=== PATIENT | female | born 1950 | race Caucasian/White ===

== ENCOUNTER 2017-12-07 13:08 | Observation (INO) ==
[2017-12-07] MEDS ORDERED: NS 1,000 ML IV ONE (13:19)
[2017-12-07] MEDS ORDERED: SALINE FLUSH 10ml SYRINGE IVF PRN ×2 (13:19→17:48)
[2017-12-07] MEDS ORDERED: CEFEPIME 1 GM in NS 100 ML IV ONE (13:19)
--- NOTE | 2017-12-07 14:04 | Emergency Department Report ---
Fever HPI - General Chief Complaint: Fever Stated Complaint: temp w/chills, chemo treatements Time Seen by Provider: 12/07/17 13:16 Source: patient, RN notes reviewed, old records reviewed, other (Oncologist) Mode of arrival: ambulatory Limitations: no limitations - History of Present Illness HPI Narrative: 67yo woman presents to the ER for evaluation of a fever. Pt has metastatic melanoma - is on a combo biologic agent that can cause fevers and neutropenia. Pt's oncologist recommended that pt come to the ER for evaluation for possible neutropenic fever. MD complaint: fever Onset (ago): hour(s) Maximum Temperature: 101.4 F Temperature Source: oral Context: on chemotherapy Associated symptoms: denies other symptoms Relieving factors: acetaminophen Exacerbating factors: nothing Treatments prior to arrival fever: acetaminophen - Related Data Home Medications Medication Instructions Recorded Confirmed Zyrtec (Cetirizine) 10 mg tablet 10 mg PO DAILY tab 03/18/17 12/07/17 biotin 1,000 mcg chewable tablet 1,000 mcg PO DAILY tab 03/18/17 12/07/17 cholecalciferol (vitamin D3) 2,000 2,000 unit PO DAILY cap 03/18/17 12/07/17 unit capsule lactobacillus combination no.8 3 1 cap PO DAILY cap 03/18/17 12/07/17 billion cell capsule [place]-3/Dha/Epa/Fish Oil [Fish Oil 2 each PO DAILY 10/06/17 12/07/17 1,000 mg Softgel] Magnesium Oxide [Magnesium] 1 tab PO BID 10/20/17 12/07/17 Aspirin [Adult Aspirin Regimen] 81 mg PO DAILY 12/07/17 12/07/17 Dabrafenib Mesylate [Tafinlar] 150 mg PO BID 12/07/17 12/07/17 Iron Ps Cmplx/Vit B12/FA 1 each PO DAILY 12/07/17 12/07/17 [Poly-Iron 150 Forte Capsule] Ondansetron HCl [Zofran] 4 mg PO PRN PRN 12/07/17 12/07/17 Sucralfate [Carafate] 1 gm PO QID 12/07/17 12/07/17 Trametinib Dimethyl Sulfoxide 2 mg PO DAILY 12/07/17 12/07/17 [Mekinist] Previous Rx's Medication Instructions Recorded famotidine 20 mg tablet 20 mg PO DAILY #90 tab 04/27/17 lisinopril 20 mg tablet 20 mg PO BID #180 tab 04/27/17 Zoloft (sertraline) 100 mg tablet 100 mg PO DAILY #90 tab 07/14/17 Glucophage (metformin) 500 mg 500 mg PO BID #180 tab 07/29/17 tablet Neurontin (gabapentin) 300 mg 600 mg PO TID #540 cap 10/24/17 capsule [place] 10 mg-acetaminophen 325 mg 0.5 tab PO QID PRN #60 tab 12/02/17 tablet Allergies Allergy/AdvReac Type Severity Reaction Status Date / Time benazepril [From Lotensin] Allergy Intermediate Cough Verified 12/07/17 14:01 peach Allergy Intermediate HIVES Verified 12/07/17 14:01 [place] Allergy Intermediate HIVES Verified 12/07/17 14:01 Iodinated Contrast- Oral and Allergy Unknown rash Verified 12/07/17 14:01 IV Dye Ljskwsz-Coc-Hnb Reductase AdvReac Intermediate myalgias Verified 12/07/17 14:01 Inhibitor aspartame AdvReac Mild {NUTRASWEET(R)} Verified 12/07/17 14:01 FACIAL NERVE PROBLEMS Review of Systems All systems: reviewed and negative except as stated Constitutional: Reports: as per HPI, fever, weakness. Denies: chills, weight change, night sweats PFSH Patient Stated Medical History Sleep Apnea No Diabetes Mellitus Type 2 Yes: PREDIABETIC/HIGH BGM'SPER PATIENT-PT DENIES DIABETES Clinic Medical History (Last Updated 10/11/17 @ 13:56 by Lesia Tracey, JAGUAR) Seasonal allergies (Chronic Medical) Lymphadenopathy (Chronic Medical) R axilla Melanoma (Chronic Medical) Probably metastatic-with lymph node involvement R axilla. H x of excision of superficial melanoma R upper back in 2010. Chronic low back pain (Chronic Medical) Mixed hyperlipidemia (Chronic Medical) Obesity (Chronic Medical) Hx of melanoma of skin (Chronic Medical) Right upper back (2010) Osteoarthritis (Chronic Medical) Neuropathy (Chronic Medical) Left leg Hx of septic arthritis (Resolved Medical) Left knee Allergic rhinitis (Chronic Medical) Spondylolisthesis (Chronic Medical) L5-S1 MVP (mitral valve prolapse) (Chronic Medical) HTN (hypertension) (Chronic Medical) Anxiety (Acute Medical) Depression (Acute Medical) Surgical History: hysterectomy 1991. bilateral bunionectomy 1980. spinal fusion 2001 with corrections 2005 and 2006. left knee replacement 2009 Family History: Family History (Last Reviewed 10/11/17 @ 13:37 by LISA Bonilla) Father , at age 52 Heart attack Alcoholism Mother , at age 71 Polio Paralytic ileus Sister Post-polio syndrome - Social History Smoking status: Never smoker Alcohol intake frequency: does not drink Housing: house Household members: spouse, other Current occupational status: retired Physical Exam - Limitations Limitations: no limitations - General General appearance: alert, in no apparent distress, obese - Normal Exams: Head:: Normocephalic without trauma Eyes:: Pupils are PERRLA w/ EOMI, No scleral icterus, irritation, or foreign bodies noted ENMT:: No facial trauma, nasal exudates, pharyngeal erythema, or exudates are noted Neck:: Full range of motion, without adenopathy Lymphatic:: No lymphadenopathy Musculoskeletal:: No tenderness, or deformity noted Integumentary:: No rashes, hives, or bruising noted Neurological:: Patient is alert, and oriented Psychiatric:: Patient exhibits, appropriate attention - Chest Chest inspection: Present: normal inspection, symmetric chest wall rise. Absent : tenderness, rash - Respiratory Respiratory exam: Present: normal lung sounds bilaterally. Absent: respiratory distress, wheezes, stridor, prolonged expiratory phase, crackles - Cardiovascular Cardiovascular exam: Present: regular rate, normal rhythm, normal heart sounds. Absent: rubs, gallop, clicks - Abdominal Exam Abdominal exam: Present: soft, normal bowel sounds. Absent: distention, tenderness, guarding, rebound, rigidity Course - Consultations Consultation #1: Dr. Croft: Would recommend contacting hospitalist regarding obs to eval for improvement and await culx results. Would recommend using levaquin or continuing cefepime. Time: 15:20 Consultation #2: Hospitalist: Can admit for overnight observation and reassess in the AM. Time: 15:26 Vital Signs Temperature 100.3 F 12/07/17 13:08 Pulse Rate 115 H 12/07/17 13:08 Respiratory Rate 24 12/07/17 13:08 Blood Pressure 129/68 12/07/17 13:08 Pulse Oximetry 97 12/07/17 13:08 Temperature 100.3 F 12/07/17 13:08 Pulse Rate 115 H 12/07/17 13:08 Respiratory Rate 24 12/07/17 13:08 Blood Pressure 129/68 12/07/17 13:08 Pulse Oximetry 97 12/07/17 13:08 Fever - MDM Narrative Medical decision making narrative: Pt with low WBC's, but no sepsis markers and not neutropenic. After discussion with oncologist, contacted hospitalist for observation. Hospitalist will admit for overnight observation; will reassess tomorrow and determine whether to admit pt or d/c to home with f/u. - Differential Diagnosis Likely: cellulitis, fever of unknown origin, gastroenteritis, community acquired pneumonia, pyelonephritis, viral infection, sepsis - Medical Records Attestation: I reviewed the patient's medical records. - Lab Data Attestation: I reviewed the patient's lab results. Result diagrams: 12/07/17 13:41 12/07/17 13:42 - Radiology Data Attestation: I reviewed the patient's radiology results. CXR: IMPRESSION: No acute cardiopulmonary abnormality. Disposition Clinical Impression: Fever Qualifiers: Fever type: unspecified Qualified Code(s): R50.9 - Fever, unspecified Disposition: 02 To OBS [facility] Print Language: German Condition: Stable Prescriptions: No Action Iron Ps Cmplx/Vit B12/FA [Poly-Iron 150 Forte Capsule] 1 each PO DAILY Dabrafenib Mesylate [Tafinlar] 150 mg PO BID Ondansetron HCl [Zofran] 4 mg PO PRN PRN PRN Reason: Nausea [place]-3/Dha/Epa/Fish Oil [Fish Oil 1,000 mg Softgel] 2 each PO DAILY Magnesium Oxide [Magnesium] 1 tab PO BID Trametinib Dimethyl Sulfoxide [Mekinist] 2 mg PO DAILY Aspirin [Adult Aspirin Regimen] 81 mg PO DAILY Sucralfate [Carafate] 1 gm PO QID biotin 1,000 mcg chewable tablet 1,000 mcg PO DAILY tab Zyrtec (Cetirizine) 10 mg tablet 10 mg PO DAILY tab cholecalciferol (vitamin D3) 2,000 unit capsule 2,000 unit PO DAILY cap lactobacillus combination no.8 3 billion cell capsule 1 cap PO DAILY cap famotidine 20 mg tablet 20 mg PO DAILY #90 tab lisinopril 20 mg tablet 20 mg PO BID #180 tab Glucophage (metformin) 500 mg tablet 500 mg PO BID #180 tab Neurontin (gabapentin) 300 mg capsule 600 mg PO TID #540 cap Zoloft (sertraline) 100 mg tablet 100 mg PO DAILY #90 tab [place] 10 mg-acetaminophen 325 mg tablet 0.5 tab PO QID PRN #60 tab PRN Reason: pain Referrals: Rangel Platt MD [Primary Care Provider] - Time of Disposition: 16:04 - Seen By: physician
--- NOTE | 2017-12-07 14:20 | XRay Report ---
Indication: F/C PROCEDURE: XR chest 1V: Encounter: Initial Comparison: November 09, 2008 FINDINGS: The lungs are clear. There is no abnormal airspace opacity, pleural effusion or pneumothorax identified. The heart size, pulmonary vasculature and mediastinum are within normal limits. No significant skeletal abnormality is seen. IMPRESSION: No acute cardiopulmonary abnormality. .
[2017-12-07 17:23] VITALS: BMI 30.7
--- NOTE | 2017-12-07 17:30 | History & Physical Report ---
History of Present Illness Date: 12/07/17 Chief complaint: Fever HPI: Mrs. Fleming is a 67 year old with a history of metastatic melanoma, diagnosed in August,. Previously, she had a melanoma removed from her right shoulder in 2010 with clear margins. She sees Dr. Croft for treatment. She was started on Mekonist and Tafinlar about 1 week ago. She states that she started having chills on 12/04/17. She also had mild nausea and vomited rather abruptly once in the morning of 12/05/17 and again on 12/06/17. She also reports that she has chronic sinus problems and seasonal allergies; she had a brief mild left-sided nasal obstruction a couple days ago, but that's fairly typical for her. She's noticed that her strength overall has been slightly reduced. While she has chronic back pain, she had a different back ache that went up and down her back , on either side of her spine. She denies cough. She denies any abdominal pain, diarrhea, or constipation. She denies dysuria or urinary frequency/urgency. She has not had chest pain or dyspnea. She denies headaches, visual changes, paresthesias. She works out in the yard daily and other than a scratch to her left leg from a fence, she denies any insect bites or contact dermatitis exposures. She rechecked her temperature twice on 12/05/17, both times normal, 98.3 & 98.4. When she reviewed the side effect of her biologic agents, fever was one, but it usually resolved after 3 days. She continued having chills, and when she rechecked her temp on 12/06/17 her thermometer battery (raising the question of accuracy the day before). She purchased a new thermometer on , and her temp was 101.2. She presented to [facility] for evaluation, where she had a fever of 102.6, tachycardia [115], and tachypnea [24]. WBC was low at 2.8, hgb low at 10.9, and platelets were low normal at 148 (earlier this month she was in the 300s). Na was minimally low at 135. UA and CXR were nonrevealing. She was bolused 1L IVF and was started on cefepime. Dr. Croft recommended hospital admission and coverage with cefepime, and the patient was subsequently admitted under the hospitalist service. Review of Systems All systems PM: 10-point ROS was reviewed, no additional remarkable complaints except (as per HPI) - Cardiovascular Cardiovascular: Absent: palpitations (used to have palpitations years ago) Past Medical History Medical History: Medical History (Last Updated 12/07/17 @ 17:49 by Lyn Ling, JAGUAR) Lymphadenopathy (Chronic) R axilla Melanoma (Chronic) Probably metastatic-with lymph node involvement R axilla. H x of excision of superficial melanoma R upper back in 2010. Chronic low back pain (Chronic) Mixed hyperlipidemia (Chronic) Obesity (Chronic) Hx of melanoma of skin (Chronic) Right upper back (2011) Osteoarthritis (Chronic) Neuropathy (Chronic) Left leg Hx of septic arthritis (Resolved) Onset Date: ~2008 Strep infection, Left knee Allergic rhinitis (Chronic) Spondylolisthesis (Chronic) L5-S1 MVP (mitral valve prolapse) (Chronic) HTN (hypertension) (Chronic) Anxiety Depression Medical History Updates: Prediabetes Surgical History: right axillary dissection 10/21/17 Dr. Saenz. hysterectomy 1991. bilateral bunionectomy 1980. spinal fusion 2001 with corrections 2005 and 2006. left knee replacement 2009 Family History: Family History (Last Reviewed 10/11/17 @ 13:37 by Brooke Miramontes [facility]) Father , at age 52 Heart attack Alcoholism Mother , at age 71 Polio Paralytic ileus Sister Post-polio syndrome Family History Updates: Father also smoked. Mother had cervical-level paralysis , thought to be polio related, and was placed on a vent at age 29, days after her 2nd daughter was born. Sister is 4 years younger than Roberta and has post-polio syndrome. She lives in [facility]. Family History: As Above - Social History Smoking status: Never smoker Substance use type: does not use Alcohol intake frequency: does not drink Household members: spouse Current occupational status: retired Previous occupational history: Nurse at [employer] Social history: PCP - Dr. Platt Medications Home Medications Medication Instructions Recorded Confirmed Type Zyrtec (Cetirizine) 10 mg tablet 10 mg PO DAILY tab 03/18/17 12/07/17 History biotin 1,000 mcg chewable tablet 1,000 mcg PO DAILY tab 03/18/17 12/07/17 History cholecalciferol (vitamin D3) 2,000 2,000 unit PO DAILY cap 03/18/17 12/07/17 History unit capsule lactobacillus combination no.8 3 1 cap PO DAILY cap 03/18/17 12/07/17 History billion cell capsule famotidine 20 mg tablet 20 mg PO DAILY #90 tab 04/27/17 12/07/17 Rx lisinopril 20 mg tablet 20 mg PO BID #180 tab 04/27/17 12/07/17 Rx Zoloft (sertraline) 100 mg tablet 100 mg PO DAILY #90 tab 07/14/17 12/07/17 Rx Glucophage (metformin) 500 mg 500 mg PO BID #180 tab 07/29/17 12/07/17 Rx tablet [place]-3/Dha/Epa/Fish Oil [Fish Oil 2 each PO DAILY 10/06/17 12/07/17 History 1,000 mg Softgel] Magnesium Oxide [Magnesium] 1 tab PO BID 10/20/17 12/07/17 History Neurontin (gabapentin) 300 mg 600 mg PO TID #540 cap 10/24/17 12/07/17 Rx capsule [place] 10 mg-acetaminophen 325 mg 0.5 tab PO QID PRN #60 tab 12/02/17 12/07/17 Rx tablet Aspirin [Adult Aspirin Regimen] 81 mg PO DAILY 12/07/17 12/07/17 History Dabrafenib Mesylate [Tafinlar] 150 mg PO BID 12/07/17 12/07/17 History Iron Ps Cmplx/Vit B12/FA 1 each PO DAILY 12/07/17 12/07/17 History [Poly-Iron 150 Forte Capsule] Ondansetron HCl [Zofran] 4 mg PO PRN PRN 12/07/17 12/07/17 History Sucralfate [Carafate] 1 gm PO QID 12/07/17 12/07/17 History Trametinib Dimethyl Sulfoxide 2 mg PO DAILY 12/07/17 12/07/17 History [Mekinist] Allergies Allergy/AdvReac Type Severity Reaction Status Date / Time benazepril [From Lotensin] Allergy Intermediate Cough Verified 12/07/17 14:01 peach Allergy Intermediate HIVES Verified 12/07/17 14:01 [place] Allergy Intermediate HIVES Verified 12/07/17 14:01 Iodinated Contrast- Oral and Allergy Unknown rash Verified 12/07/17 14:01 IV Dye Qpqfgiz-[id number]-Vso Reductase AdvReac Intermediate myalgias Verified 12/07/17 14:01 Inhibitor aspartame AdvReac Mild {NUTRASWEET(R)} Verified 12/07/17 14:01 FACIAL NERVE PROBLEMS Exam Vital Signs: Temperature 100.4 F 12/07/17 16:00 Pulse Rate 96 12/07/17 16:43 Respiratory Rate 21 12/07/17 14:30 Blood Pressure 123/57 12/07/17 16:36 Pulse Oximetry 96 12/07/17 16:37 - Constitutional Present: no acute distress, well nourished, well developed - Routine HEENT Exam Head: Present: normocephalic Eye: Present: PERRL. Absent: conjunctival icterus, scleral injection ENT: Present: mucous membranes moist, oropharynx clear - Routine Neck Exam Present: supple. Absent: lymphadenopathy - Routine Respiratory Exam Present: CTA bilaterally - Routine Cardiovascular Exam Present: RRR, S1, S2 - Routine Abdominal Exam Present: soft, normoactive bowel sounds, non distended, non tender - Routine Extremities Exam Present: no edema, pulses intact, normal capillary refill. Absent: calf tenderness - Routine Back/Spine/Pelvis Exam Back/Spine: Absent: paraspinal tenderness, vertebral tenderness, muscle spasm - Routine Skin Exam Present: intact, warm, wounds (linear abrasion distal to left knee. No surrounding erythema, swelling, no purulent drainage.). Absent: dry ( diaphoretic) - Routine Neurological Exam Present: alert, oriented X3, CN II-XII intact, moving all extremities, vision grossly intact, hearing grossly intact, normal speech. Absent: sensory deficit , motor deficit, altered mental status, facial asymmetry - Routine Psychiatric Exam Present: normal affect, normal thought process, cooperative Results - Labs CBC & Chem 7: 12/07/17 13:41 12/07/17 13:42 Assessment and Plan (1) Fever Current visit: Yes Status: Acute Assessment and Plan: ASSESSMENT Fever, unknown origin Possible sepsis (fever, tachycardia, tachypnea) without signs of severe sepsis or shock Metastatic melanoma Borderline neutropenia Low-normal platelets (decreasing counts) Anemia, normocytic History of septic arthritis, left knee with strep, 2009 Neuropathy, left leg HTN MVP Hyperlipidemia Prediabetes Spondylolisthesis L5-S1, chronic low back pain OA Anxiety/depression Allergic rhinitis PLAN Admit, observation status. Cefepime 1 gm QID. Blood cx sent. Check procalcitonin. Consult Dr. Croft. ANC = 1999. Repeat in am. Monitor platelets - rapidly declined since 11/29 when plt = 345. IVF: NS at 100 ml/hr. BP stable. Reassess electrolytes in am d/t fluid admin. Resume home meds. Monitor blood sugars AC & HS. Advanced directives: none. Considering naming daughter (an RN who lives locally ) and son (in [place]) as primary and secondary DPOAs. We may complete DPOA form prior to discharge, if she's ready. PCP: Dr. Platt. DVT Prophylaxis: SCD's GI Prophylaxis: Pepcid Resuscitation Status: Full Code - Physician Narrative Physician: Lizeth Mullins MD Narrative: Date: 12/07/17 Time: 1849 I have independently evaluated and examined this patient. I reviewed the chart, the patient's history, and the PARK ATTENDANT/PA's documented findings as above. We discussed and formulated the assessment and plan as above with additions as below: Mrs. Fleming recently started new biologic therapy with Tafinlar and Mekinist treatment of melanoma. Shortly after initiation she began noting chills occurring every 6-8 hours. Fever was not identified until this morning. She denies any infectious symptoms whatsoever including sore throat, sinus congestion, cough, sputum production, dyspnea, abdominal pain, diarrhea, or dysuria. She experienced 2 episodes of emesis without preceding nausea 1 and 2 days ago but has not had recurrent emesis today. NAD, alert, appears comfortable Oropharynx clear, neck supple Respirations nonlabored, good airflow, breath sounds clear Regular rhythm, S1-S2-no murmur appreciated Abdomen soft, nontender Laboratory data unremarkable other than mild neutropenia with ANC just under 2000 Chest x-ray reviewed by myself-NAD Fever/chills-likely medication induced, continue antibiotics overnight pending preliminary blood culture results. Discussed with Dr. Willard prior to hospitalization. Hospital Course Summary Disclaimer: The visit summary below is not to be considered part of the above Progress Note. Hospital Course: 12/07 Admit, observation status. Cefepime 1 gm QID. Blood cx sent. Check procalcitonin. Consult Dr. Croft. ANC = 1999. Repeat in am. Monitor platelets - 11/29 plt = 345. IVF: NS at 100 ml/hr. BP stable. Reassess electrolytes in am d/t fluid admin. Resume home meds. Monitor blood sugars AC & HS. Advanced directives: none. Considering naming daughter (an RN who lives locally ) and son (in [place]) as primary and secondary DPOAs. We may complete DPOA form prior to discharge, if she's ready.
[2017-12-07] MEDS ORDERED: ONDANSETRON 4 MG/2 ML INJECTION IVP PRN (17:32)
[2017-12-07] MEDS ORDERED: ACETAMINOPHEN 325 MG TABLET PO PRN (17:32)
[2017-12-07] MEDS ORDERED: SENNA + DOCUSATE TABLET PO PRN (17:32)
[2017-12-07] MEDS ORDERED: HYDROCODONE/APAP 10 MG/325 MG TABLET PO PRN (17:36)
[2017-12-07] MEDS: NS 1,000 ML IV SCH (17:50)
[2017-12-07] MEDS: CEFEPIME 1 GM in NS 100 ML IV SCH ×2 (18:52→23:52)
[2017-12-07] MEDS: METFORMIN 500 MG TABLET PO SCH (18:52)
[2017-12-07] MEDS: MAGNESIUM OXIDE 400 MG TABLET PO SCH (21:20)
[2017-12-07] MEDS: GABAPENTIN 600 MG TABLET PO SCH (21:20)
[2017-12-07] MEDS: SUCRALFATE 1 GM TABLET PO SCH (21:20)
[2017-12-07] MEDS: LISINOPRIL 20 MG TABLET PO SCH (21:20)
[2017-12-08] MEDS: NS 1,000 ML IV SCH (06:01)
[2017-12-08] MEDS: SUCRALFATE 1 GM TABLET PO SCH ×2 (06:03→11:51)
[2017-12-08] MEDS: CEFEPIME 1 GM in NS 100 ML IV SCH ×2 (06:03→11:51)
[2017-12-08 07:20] VITALS: BP 95/51; O2SAT 98
[2017-12-08] MEDS ORDERED: CETIRIZINE 10 MG TABLET PO SCH (09:00)
[2017-12-08] MEDS ORDERED: SERTRALINE 100 MG TABLET PO SCH (09:00)
[2017-12-08] MEDS ORDERED: FAMOTIDINE 20 MG TABLET PO SCH (09:00)
[2017-12-08] MEDS: GABAPENTIN 600 MG TABLET PO SCH ×2 (09:15→15:20)
[2017-12-08] MEDS: MAGNESIUM OXIDE 400 MG TABLET PO SCH (09:15)
[2017-12-08] MEDS: METFORMIN 500 MG TABLET PO SCH (09:16)
[2017-12-08] MEDS: LISINOPRIL 20 MG TABLET PO SCH (09:17)
[2017-12-08 09:28] VITALS: TEMP 97.7
[2017-12-08 10:21] VITALS: PULSE 66
[2017-12-08 12:01] VITALS: RESP 18
--- NOTE | 2017-12-08 14:14 | Consult Note ---
<Kerline Spence - Last Filed: 12/08/17 16:46> Oncology HPI - Data of Consult Patient: known to practice within the last 3 years Consult date: 12/08/17 Requesting Physician: Lizeth Mullins MD Primary Care Provider: Rangel Platt MD - Consult Narrative Reason for consult: melanoma History of present illness: 67-year-old female, seen in consultation by Dr. Croft October/2017 with history of melanoma diagnosed in 2010, now with new lump in the right axilla. She underwent right axillary dissection with 7 of 8 lymph nodes being released/ moved which demonstrated metastatic melanoma. 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 Patient was started on Mekinist/Tafinlar. Approximately 1 week after starting oral treatment, patient noted chills, single episode of nausea and vomiting Tuesday evening. States initially felt better after had a shower, but symptoms persisted/recurred Tuesday/Tuesday. Marlow feverish, but her thremometer never read over 100. She replaced her thermometer and noted on Tuesday to have a temperature of 101. She presented to [facility] emergency department; evaluation showed neutropenia, fever, tachycardia and tachypnea. She was admitted /given IV cefepime, supportive care. At time of intake, alone in room. Pleasant affect. States " I feel 110% better." No further fever, chills. She is eating and drinking normally. Continues to have some fatigue, but not as severe. Denies diarrhea or constipation. No D dysuria or hematuria. History of Present Illness 2010: Melanoma resected from right shoulder. Breslow's thickness 0.84 mm. Treated with wide excision. --June 2017: Fall striking the right armpit on a chair with the development of fullness. --July 2017:. Arterial occlusion of left eye. --Lump in right axilla began to increase in size. Presented to primary care physician --09/22/17: Biopsy of right axillary soft tissue showing a S100 positive high- grade spindle cell neoplasm involving the deep dermis and subcutaneous tissues favoring metastatic melanoma with spindle cell features. --09/30/17: Right axillary ultrasound showing 3 hypoechoic vascular lesions in the axillary area one measures 7 x 5 x 5 cm the next one was 3.5 x 2 x 2 cm and 1 2 x 1.8 x 1.8 cm. --10/11/17: Laboratory showing a hemoglobin of 11.5, MCV 76.7, platelets 414,000 , normal LDH of 422, elevated globulins of 3.9 and elevated alkaline phosphatase of 157 --10/14/17: CT scan of the head chest abdomen pelvis showing extensive right axillary and subpectoral adenopathy and splenomegaly --10/21/17: Right axillary dissection with 7 of 8 lymph nodes being released moved and being involved with metastatic melanoma. Largest metastasis was 6 cm. Tumor focally extends beyond the capsule of the lymph node. Tumor was focally present and lymph vascular channels in the capsule of the lymph nodes. --BRAF V600E mutation Review of Systems - Constitutional Constitutional: Present: chills, fever(s), weakness - EENT Eyes: Absent: change in vision, diplopia Mouth/Throat: Absent: sore throat, changes in swallowing - Cardiovascular Cardiovascular: Absent: chest pain, palpitations - Respiratory Respiratory: Absent: cough, dyspnea on exertion - Gastrointestinal Gastrointestinal: Present: nausea, vomiting (1 X 4 days ago/none since) - Genitourinary Genitourinary: Absent: dysuria, urinary frequency - Musculoskeletal Musculoskeletal: Present: muscle weakness - Neurological Neurological: Present: weakness. Absent: focal weakness - Psychiatric Psychiatric: Absent: anxiety, depression PFSH Patient Stated Medical History Other Cardiology Yes: mitral valve prolapse Post Menopausal Yes Clinic Medical History (Last Updated 12/07/17 @ 17:49 by Lyn Ling APRN) Lymphadenopathy (Chronic Medical) R axilla Melanoma (Chronic Medical) Probably metastatic-with lymph node involvement R axilla. H x of excision of superficial melanoma R upper back in 2010. Chronic low back pain (Chronic Medical) Mixed hyperlipidemia (Chronic Medical) Obesity (Chronic Medical) Hx of melanoma of skin (Chronic Medical) Right upper back (2010) Osteoarthritis (Chronic Medical) Neuropathy (Chronic Medical) Left leg Hx of septic arthritis (Resolved Medical ~2008) Strep infection, Left knee Allergic rhinitis (Chronic Medical) Spondylolisthesis (Chronic Medical) L5-S1 MVP (mitral valve prolapse) (Chronic Medical) HTN (hypertension) (Chronic Medical) Anxiety (Acute Medical) Depression (Acute Medical) Medical History Updates: Prediabetes Surgical History: hysterectomy 1991. bilateral bunionectomy 1980. spinal fusion 2001 with corrections 2005 and 2006. left knee replacement 2009 Family History: Family History (Last Reviewed 10/11/17 @ 13:37 by Brooke Miramontes Myah) Father , at age 52 Heart attack Alcoholism Mother , at age 71 Polio Paralytic ileus Sister Post-polio syndrome Multiple positive family history of malignancy. Maternal grandfather prostate cancer, paternal grandfather prostate cancer, paternal grandmother breast cancer sister #1 alive/thyroid cancer sister #2 alive cutaneous melanoma Family History Updates: Father also smoked. Mother had cervical-level paralysis , thought to be polio related, and was placed on a vent at age 29, days after her 2nd daughter was born. Sister is 4 years younger than Roberta and has post-polio syndrome. She lives in [facility]. - Social History Smoking status: Never smoker Substance use type: does not use Alcohol intake frequency: does not drink Housing: house Household members: spouse, other Current occupational status: retired Previous occupational history: Nurse at [employer] Medications Home Medications Medication Instructions Recorded Confirmed Type Zyrtec (Cetirizine) 10 mg tablet 10 mg PO DAILY tab 03/18/17 12/07/17 History biotin 1,000 mcg chewable tablet 1,000 mcg PO DAILY tab 03/18/17 12/07/17 History cholecalciferol (vitamin D3) 2,000 2,000 unit PO DAILY cap 03/18/17 12/07/17 History unit capsule lactobacillus combination no.8 3 1 cap PO DAILY cap 03/18/17 12/07/17 History billion cell capsule famotidine 20 mg tablet 20 mg PO DAILY #90 tab 04/27/17 12/07/17 Rx lisinopril 20 mg tablet 20 mg PO BID #180 tab 04/27/17 12/07/17 Rx Zoloft (sertraline) 100 mg tablet 100 mg PO DAILY #90 tab 07/14/17 12/07/17 Rx Glucophage (metformin) 500 mg 500 mg PO BID #180 tab 07/29/17 12/07/17 Rx tablet [place]-3/Dha/Epa/Fish Oil [Fish Oil 2 each PO DAILY 10/06/17 12/07/17 History 1,000 mg Softgel] Magnesium Oxide [Magnesium] 1 tab PO BID 10/20/17 12/07/17 History Neurontin (gabapentin) 300 mg 600 mg PO TID #540 cap 10/24/17 12/07/17 Rx capsule [place] 10 mg-acetaminophen 325 mg 0.5 tab PO QID PRN #60 tab 12/02/17 12/07/17 Rx tablet Aspirin [Adult Aspirin Regimen] 81 mg PO DAILY 12/07/17 12/07/17 History Dabrafenib Mesylate [Tafinlar] 150 mg PO BID 12/07/17 12/07/17 History Iron Ps Cmplx/Vit B12/FA 1 each PO DAILY 12/07/17 12/07/17 History [Poly-Iron 150 Forte Capsule] Ondansetron HCl [Zofran] 4 mg PO PRN PRN 12/07/17 12/07/17 History Sucralfate [Carafate] 1 gm PO QID 12/07/17 12/07/17 History Trametinib Dimethyl Sulfoxide 2 mg PO DAILY 12/07/17 12/07/17 History [Mekinist] Levofloxacin [Levaquin] 500 mg PO DAILY #14 tab 12/08/17 Rx Allergies Allergy/AdvReac Type Severity Reaction Status Date / Time benazepril [From Lotensin] Allergy Intermediate Cough Verified 12/07/17 14:01 peach Allergy Intermediate HIVES Verified 12/07/17 14:01 [place] Allergy Intermediate HIVES Verified 12/07/17 14:01 Iodinated Contrast- Oral and Allergy Unknown rash Verified 12/07/17 14:01 IV Dye Ttmcuac-Ksa-Den Reductase AdvReac Intermediate myalgias Verified 12/07/17 14:01 Inhibitor aspartame AdvReac Mild {NUTRASWEET(R)} Verified 12/07/17 14:01 FACIAL NERVE PROBLEMS Exam Vital signs: Temperature 97.7 F 12/08/17 09:27 Pulse Rate 66 12/08/17 08:00 Respiratory Rate 18 12/08/17 11:59 Blood Pressure 95/51 12/08/17 07:00 Pulse Oximetry 98 12/08/17 07:00 Oncology Results - Labs CBC & Chem 7: 12/08/17 06:11 12/08/17 06:11 Labs: Short CBC 12/08/17 Range/Units 06:11 WBC 2.6 L (4.5-11.0) T/MM3 Hgb 10.2 L (12-16) GM/DL Hct 32.3 L (36-46) % Plt Count 143 (130-400) T/MM3 [facility] 12/08/17 06:11 Sodium 141 D Potassium 4.4 Chloride 106 D Carbon Dioxide 26 BUN 20.0 H Creatinine 0.7 D Glucose 93 Calcium 8.5 - Impressions Date of Exam: 12/07/17 Ordering Provider: Wilder Willard DO Type of Exam(s): XR chest 1V Reason for Exam(s): F/C Indication: F/C PROCEDURE: XR chest 1V: Encounter: Initial Comparison: November 09, 2008 FINDINGS: The lungs are clear. There is no abnormal airspace opacity, pleural effusion or pneumothorax identified. The heart size, pulmonary vasculature and mediastinum are within normal limits. No significant skeletal abnormality is seen. IMPRESSION: No acute cardiopulmonary abnormality. . Assessment and Plan Assessment and Plan: 1. Recurrent metastatic melanoma, recurrent disease September 2017. Currently on targeted therapy with Mekinist/Taflinar; has not taken for past 24 hours secondary to fever of unknown origin/chills/possible sepsis. Symptoms have improved dramatically in past 24 hours. Plan Continue antibiotics until final results of blood cultures. Continue supportive care. Dr. Croft will see patient later today. <Eh Croft - Last Filed: 12/09/17 17:53> Oncology HPI - Data of Consult Requesting Physician: Lizeth Mullins MD Primary Care Provider: Rangel Platt MD [facility] Patient Stated Medical History Other Cardiology Yes: mitral valve prolapse Post Menopausal Yes Clinic Medical History (Last Updated 12/07/17 @ 17:49 by Lyn Ling, JAGUAR) Lymphadenopathy (Chronic Medical) R axilla Melanoma (Chronic Medical) Probably metastatic-with lymph node involvement R axilla. H x of excision of superficial melanoma R upper back in 2010. Chronic low back pain (Chronic Medical) Mixed hyperlipidemia (Chronic Medical) Obesity (Chronic Medical) Hx of melanoma of skin (Chronic Medical) Right upper back (2010) Osteoarthritis (Chronic Medical) Neuropathy (Chronic Medical) Left leg Hx of septic arthritis (Resolved Medical ~2008) Strep infection, Left knee Allergic rhinitis (Chronic Medical) Spondylolisthesis (Chronic Medical) L5-S1 MVP (mitral valve prolapse) (Chronic Medical) HTN (hypertension) (Chronic Medical) Anxiety (Acute Medical) Depression (Acute Medical) Family History: Family History (Last Reviewed 10/11/17 @ 13:37 by LISA Bonilla) Father , at age 52 Heart attack Alcoholism Mother , at age 71 Polio Paralytic ileus Sister Post-polio syndrome Exam Vital signs: Temperature 97.7 F 12/08/17 09:27 Pulse Rate 66 12/08/17 08:00 Respiratory Rate 18 12/08/17 11:59 Blood Pressure 95/51 12/08/17 07:00 Pulse Oximetry 98 12/08/17 07:00 Oncology Results - Labs CBC & Chem 7: 12/08/17 06:11 12/08/17 06:11 Assessment and Plan Assessment and Plan: Late entry. Patient seen 5:15 Pm on 12/08. Toxicity of targeted therapy with fever and neutropenia. Grade 2 tolerable. Felling much better today. Will have her alternate Ibuprofen and acetemeniphen for antipyrexis and follow counts. Resume Drug therapy. Follow up tomorrow in office. Discussed wtih Dr. Mullins. Agree with documentation of Marita Spence and I participated in the development of the plan of care of this patient.
--- NOTE | 2017-12-08 14:57 | Discharge Summary ---
Discharge Information Date of admission: 12/07/17 16:05 Anticipated date of discharge: 12/08/17 Attending Physician: Lizeth Mullins MD Primary care physician: Rangel Platt MD Consults: Consulting Provider: Eh Croft Reason For Exam: fever, metastatic melanoma - Discharge Diagnosis (1) Fever Status: Acute Fever, unknown origin SIRS Metastatic melanoma Borderline neutropenia Low-normal platelets (decreasing counts) Anemia, normocytic History of septic arthritis, left knee with strep, 2009 Neuropathy, left leg HTN MVP Hyperlipidemia Prediabetes Spondylolisthesis L5-S1, chronic low back pain OA Anxiety/depression Allergic rhinitis - Laboratory Labs: 12/08/17 06:11 12/08/17 06:11 ANC at discharge 960 - Microbiology Blood cultures 2 negative after 24 hours - Radiology Radiology: Chest x-ray on admission-NAD History of Present Illness HPI: Mrs. Fleming is a 67 year old with a history of metastatic melanoma, diagnosed in August,. Previously, she had a melanoma removed from her right shoulder in 2010 with clear margins. She sees Dr. Croft for treatment. She was started on Mekonist and Tafinlar about 1 week ago. She states that she started having chills on 12/04/17. She also had mild nausea and vomited rather abruptly once in the morning of 12/05/17 and again on 12/06/17. She also reports that she has chronic sinus problems and seasonal allergies; she had a brief mild left-sided nasal obstruction a couple days ago, but that's fairly typical for her. She's noticed that her strength overall has been slightly reduced. While she has chronic back pain, she had a different back ache that went up and down her back , on either side of her spine. She denies cough. She denies any abdominal pain, diarrhea, or constipation. She denies dysuria or urinary frequency/urgency. She has not had chest pain or dyspnea. She denies headaches, visual changes, paresthesias. She works out in the yard daily and other than a scratch to her left leg from a fence, she denies any insect bites or contact dermatitis exposures. She rechecked her temperature twice on 12/05/17, both times normal, 98.3 & 98.4. When she reviewed the side effect of her biologic agents, fever was one, but it usually resolved after 3 days. She continued having chills, and when she rechecked her temp on 12/06/17 her thermometer battery (raising the question of accuracy the day before). She purchased a new thermometer on , and her temp was 101.2. She presented to [facility] ED for evaluation, where she had a fever of 102.6, tachycardia [115], and tachypnea [24]. WBC was low at 2.8, hgb low at 10.9, and platelets were low normal at 148 (earlier this month she was in the 300s). Na was minimally low at 135. UA and CXR were nonrevealing. She was bolused 1L IVF and was started on cefepime. Dr. Croft recommended hospital admission and coverage with cefepime, and the patient was subsequently admitted under the hospitalist service. Objective Vital signs: Temperature 97.7 F 12/08/17 09:27 Pulse Rate 66 12/08/17 08:00 Respiratory Rate 18 12/08/17 11:59 Blood Pressure 95/51 12/08/17 07:00 Pulse Oximetry 98 12/08/17 07:00 NAD, alert Respirations nonlabored, good airflow, breath sounds clear Abdomen soft, nontender Skin without rash Height/Weight/BMI: Height 1.56 m Weight 74.7 kg Body Mass Index 30.7 Hospital Course This is a general summary of the patient's hospital course. For more details refer to the complete medical record. Hospital course: Mrs. Fleming presented with fever and chills several days after starting biologic therapy with Tafinlar and Mekinist for treatment of melanoma. Maximum temperature in the emergency room was 102.6 after which no additional temperatures were recorded. The patient had no symptoms to suggest a localized source of infection nor did exam, chest x-ray, or UA. White count was modestly depressed at 2.8 with 70% neutrophils on admission and it was elected to observe the patient after drawing blood cultures to assure stability. Side effect chemotherapy was felt to be the most likely cause of fever. Patient had no recurrent fevers during the time of observation and felt well on the morning/ early afternoon of 12/08. She continued to deny dyspnea, sputum production, abdominal pain, diarrhea, or dysuria. Blood cultures were negative at 24 hours and it was felt she could discharge home on oral Levaquin for prophylaxis due to depressed ANC. She'll follow up with Dr. Croft as previously scheduled and continue current chemotherapy regimen. Resuscitation Status: Full Code Discharge Plan - Discharge Disposition Discharge Date: 12/08/17 Disposition: 01 Discharged Home, Self-Care *Condition: Stable Reason For Visit (Visit label in EMR): Fever, low WBC - Discharge Medications *Discharge Medications: New Levofloxacin [Levaquin] 500 mg PO DAILY #14 tab Continue Iron Ps Cmplx/Vit B12/FA [Poly-Iron 150 Forte Capsule] 1 each PO DAILY Dabrafenib Mesylate [Tafinlar] 150 mg PO BID Ondansetron HCl [Zofran] 4 mg PO PRN PRN PRN Reason: Nausea [place]-3/Dha/Epa/Fish Oil [Fish Oil 1,000 mg Softgel] 2 each PO DAILY Magnesium Oxide [Magnesium] 1 tab PO BID Trametinib Dimethyl Sulfoxide [Mekinist] 2 mg PO DAILY Aspirin [Adult Aspirin Regimen] 81 mg PO DAILY Sucralfate [Carafate] 1 gm PO QID Zyrtec (Cetirizine) 10 mg tablet 10 mg PO DAILY tab cholecalciferol (vitamin D3) 2,000 unit capsule 2,000 unit PO DAILY cap famotidine 20 mg tablet 20 mg PO DAILY #90 tab lisinopril 20 mg tablet 20 mg PO BID #180 tab Glucophage (metformin) 500 mg tablet 500 mg PO BID #180 tab Neurontin (gabapentin) 300 mg capsule 600 mg PO TID #540 cap Zoloft (sertraline) 100 mg tablet 100 mg PO DAILY #90 tab [place] 10 mg-acetaminophen 325 mg tablet 0.5 tab PO QID PRN #60 tab PRN Reason: pain No Action biotin 1,000 mcg chewable tablet 1,000 mcg PO DAILY tab lactobacillus combination no.8 3 billion cell capsule 1 cap PO DAILY cap - Discharge Packet/Instructions *Diet: regular *Activity: as tolerates *Pain Management/Treatment: Tylenol or [place] as per prior prescription *Wound Care: Not applicable Additional Instructions: Take Levaquin 1 tablet daily until instructed by Dr. Croft to discontinue based on white count. Typically taken in the morning. Prescription for 2 weeks therapy sent to [facility]. *Expected Signs/Symptoms: Low-grade fever, chills-should be resolving *Notify Physician if: Bleeding, persistent fevers, difficulty breathing *During Business Hours Contact: Dr. Platt or Dr. Croft - Referrals/Follow Up *Referrals/Follow Up: Eh Croft MD [Physician] - (as preciously scheduled) - Patient Handouts - Dismissal Complete Discharge Instructions are:: Complete Physician Narrative - Narrative Attestation Narrative: Date: 12/08/17 Time: 2922
== END 2017-12-08 17:55 | disposition home or self-care (01) ==
LOC: ED 13:08 → EDHOLD 13:08 → MED 16:45
PROVIDERS: ADMIT Internal Medicine; ATTEND Internal Medicine